=== PATIENT | female | born 1975 | race Caucasian/White ===

== ENCOUNTER 2016-06-15 19:05 | Emergency (ER) | payer OTHER ==
[~2016-06-15] VITALS: Ht 172.7 cm; Wt 77.0 kg
[2016-06-15 19:05] VITALS: Ht 172.7 cm; Wt 77.0 kg
[~2016-06-15 19:05] MED LIST: ACET325T33 PO; FIORICET PO; FLUO10TA; IBUP-1542; IBUP-1542 PO; LORA-186 PO; LORA-444 PO
[2016-06-15 21:42] LABS: URINE BLOOD (Dip) POC 3+ (NEGATIVE)
--- NOTE | 2016-06-15 23:12 | RADRPT ---
PROCEDURE: Ultrasound of the pelvis. CLINICAL INDICATION: Vaginal bleeding TECHNIQUE: Transabdominal and transvaginal ultrasound of the pelvis was performed to better evalua te the pelvic viscera. COMPARISON: No pertinent prior examinations were submitted for comparison. FINDINGS: LAST MENSTRUAL PERIOD: Unavailable UTERUS: Size: 7.8 x 4.1 x 4.9 cm. The uterine texture is homogeneous. The endometrium measures 10 mm which i s within normal limits. RIGHT OVARY: Size: 2.4 x 1.6 x 2.1 cm. No ovarian lesion or cyst is identified.Normal Doppler flow is noted to th e right ovary. LEFT OVARY: The ovary is not visualized. No adnexal masses are seen. CUL-DE-SAC: There is no abnormal free fluid. IMPRESSION: Normal endometrium. No evidence of ovarian torsion. RPTAT: HIKT .Antwan Adams MD, Date Time Electronically viewed and signed by .Antwan Adams MD, on 06/15/2016 23:12 .T/
[2016-06-15] MEDS ORDERED: IBUP800T25 PO (23:26)
--- NOTE | 2016-06-16 03:01 | ERD ---
ER Documentation Chief Complaint Date/Time DATE: 06/16/16 TIME: 02:56 Chief Complaint heavy vag bleed since last nite, consumes 1 pad/hr,denies preg HPI 40-year-old female complaining of heavy vaginal bleeding since last night. She changes pad every 2 hours. She also noticed large clots. She has pelvic pain. Her previous menstrual period started on 05/18/2016. Patient stated that she used to have heavy menstrual flow on the first day of her period, but this time flow is heavier than usual. Her PCP have given her ibuprofen. Denies fever or chills. Denies dysuria. Denies history of fibroids. ROS All systems reviewed and are negative except as per history of present illness. Medications Home Meds Active Scripts Ibuprofen* (Motrin*) 800 Mg Tab, 800 MG PO Q8, #30 TAB Take 1 every 8 hours for the first 3 days of the menstrual period. Prov:DENINS MONZON FINGERNAIL TECHNICIAN 06/15/16 Loratadine* (Claritin*) 10 Mg Tablet, 10 MG PO DAILY, #30 TAB Prov:LINDSAY HEREDIA PA-C 03/28/16 Ibuprofen* (Motrin*) 600 Mg Tab, 600 MG PO Q6H Y for PAIN AND OR ELEVATED TEMP, #30 TAB Prov:LINDSAY HEREDIA PA-C 03/28/16 Acetaminophen* (Tylenol*) 325 Mg Tablet, 2 TAB PO Q6 Y for PAIN AND OR ELEVATED TEMP, #20 TAB Prov:LINDSAY HEREDIA PA-C 03/28/16 Acetamin/Butalbital/Caffeine* (Fioricet*) 1 Tab Tab, 1 TAB PO Q4H Y for PAIN LEVEL 1-5, #30 TAB Prov:ERENDIRA HENLEY PA-C 11/29/15 Reported Medications Lorazepam* (Ativan*) 2 Mg Tablet, 2 MG PO DAILY 02/04/13 Fluoxetine Hcl* (Prozac*) 10 Mg Tablet 10/22/10 Ibuprofen* (Ibuprofen*) 600 Mg Tablet 10/22/10 Allergies Allergies: Coded Allergies: No Known Drug Allergies (Verified Allergy, Mild, 02/04/13) PMhx/Soc History of Surgery: No (CSECTION; BREAST AUGMENTATION, LAP CHOLEY 2010) Anesthesia Reaction: No Hx Neurological Disorder: No Hx Respiratory Disorders: No Hx Cardiac Disorders: No Hx Psychiatric Problems: Yes (DEPRESSION ON MED) Hx Miscellaneous Medical Probl: No Hx Alcohol Use: Yes (OCCASIONALLY) Hx Substance Use: No Hx Tobacco Use: Yes (2 CIGARETTES PER WEEKEND) Smoking Status: Never smoker Physical Exam Vitals Vital Signs Date Time Temp Pulse Resp B/P Pulse Ox O2 Delivery O2 Flow Rate FiO2 06/15/16 19:05 98.8 65 18 132/70 98 Physical Exam General impression: Well-developed, well-nourished. Alert, oriented, in no acute distress Head: Normocephalic, atraumatic. Respiration: Normal respiratory effort. Lungs clear to auscultate bilaterally. No wheezes, rales or rhonchi. Cardiovascular: Regular rate and rhythm. No murmurs or extra heart sounds. Abdomen: Abdomen normal to inspection. Suprapubic tenderness. No masses or organomegaly. Bowel sounds normal. Back: Normal to inspection. No midline spine tenderness. No CVA tenderness. Neuro: Mental status normal, speech normal. Skin: Normal turgor. No rash or lesions. Psych: Normal mood and affect. Results 24 hrs Laboratory Tests Test 06/15/16 21:44 Bedside Urine Blood 3+ Bedside Urine Glucose (UA) Negative Bedside Urine Ketones (LAB) Negative Bedside Urine Leukocyte Esterase (L Negative Bedside Urine Nitrite (LAB) Negative Bedside Urine Protein (LAB) 2+ Bedside Urine pH (LAB) 7.5 Procedures/MDM Well-appearing 40-year-old female presents to ED with heavy menstrual flow 2 days. Urine was negative. Urine dip showed 2+ blood, otherwise negative. Pelvic ultrasound was obtained, which was also normal. No sign of ovarian cyst or uterine fibroids. I have low suspicion for ectopic . Low suspicion for ovarian torsion. I explained to the patient that it is not unusual to have heavy menstrual flow at her age. She should continue to take ibuprofen every 6-8 hours during the first few days of her menstrual cycle. Patient also advised to follow-up with her casing builder. Patient appears well, stable for discharge and outpatient management. Medical decision making shared with patient and family. Education provided to patient and family. Patient and family expressed understanding of the plan. Medications on discharge: Ibuprofen. Follow-up: Primary care provider in 2-3 days or return to ED if worse. Departure Diagnosis: Primary Impression: Excessive vaginal bleeding Condition: Stable Patient Instructions: Dysfunctional Uterine Bleeding Referrals: ANDREW ROWELL (PCP) Additional Instructions: Call your primary care doctor TOMORROW for an appointment during the next 2-3 days.See the doctor sooner or return here if your condition worsens before your appointment time. DENNSI MONZON NP Jun 16, 2016 03:01
== END 2016-06-15 23:38 | disposition home or self-care (01) ==
LOC: FTE 19:05
DX: N93.9 Abnormal uterine and vaginal bleeding, unspecified (principal); R10.2 Pelvic and perineal pain; F17.210 Nicotine dependence, cigarettes, uncomplicated
CPT/HCPCS: 76830; 76856; 81003; Z7502

== ENCOUNTER 2016-11-12 11:39 | Emergency (ER) | payer OTHER ==
[~2016-11-12] VITALS: Wt 74.5 kg
[~2016-11-12 11:39] MED LIST changes: +IBUP800T25 PO
[2016-11-12] MEDS ORDERED: TETRACAINE 0.5% 4 ML OPH BOTH EYES ONE (12:30)
--- NOTE | 2016-11-12 13:11 | RADRPT ---
PROCEDURE: CT Brain without contrast. CLINICAL INDICATION: Headache TECHNIQUE: CT scan of the brain was performed on a multidetector high-resolution CT scan. Axial im aging was obtained of the brain without contrast administration. Coronal and sagittal reformatted i mages were obtained from the axial source images. Standard CT scan of the head without contrast prot ocols were performed. The total exam CTDI equals the 44.33 mGy and the total exam DLP equals 720.23 mGy-cm. One or more of the following dose reduction techniques were used: - Automated exposure control. - Adjustment of the mA and/or kV according to patient size. Use of iterative reconstruction technique. COMPARISON: CT head without contrast 11/29/2015. FINDINGS: The ventricular system is normal in size without midline shift. There is symmetrical prominence of the frontal extra-axial CSF spaces consistent with mild bifrontal volume loss. Negative for intracr anial masses or hemorrhages. The whitt-white matter junction is unremarkable. The bones and calvari um are intact. The paranasal sinuses and mastoids are unremarkable. IMPRESSION: 1. No evidence intracranial masses hemorrhages midline shift. 2. Mild bifrontal volume loss. RPTAT:AAJJ Physician Sharifa Date Time Electronically viewed and signed by Physician Sharifa on 11/12/2016 13:10 BM/
[2016-11-12] MEDS ORDERED: TRAM50TA2 PO (13:21)
--- NOTE | 2016-11-12 13:52 | ERD ---
ER Documentation Chief Complaint Date/Time DATE: 11/12/16 TIME: 13:48 Chief Complaint PAIN ON LEFT SIDE OF HEAD, ONSET 2 DAYS HPI 40-year-old female complains of left-sided headache for the past 8 days. She states is gradual onset, achy, feeling like a spasm type of pain and it goes onto the left side of the neck, it has been intermittent, on and off. She states that the same headache presented about a year ago, she was seen in November [address] scan of head that was unremarkable. She has tried taking over -the-counter Excedrin, with only mild relief. She states that there is pressure -like pain behind the left side of her eye, and is requesting that we check her pressures. She is wearing the same prescription glasses without any visual changes or visual focal deficits. No associated trauma, dizziness, nausea, vomiting. ROS All systems reviewed and are negative except as per history of present illness. Medications Home Meds Active Scripts Tramadol HCl (Tramadol HCl) 50 Mg Tablet, 50 MG PO Q4 Y for PAIN, #20 TAB Prov:CRISTIAN CONCEPCION PA-C 11/12/16 Ibuprofen* (Motrin*) 800 Mg Tab, 800 MG PO Q8, #30 TAB Take 1 every 8 hours for the first 3 days of the menstrual period. Prov:DENNIS MONZON NP 06/15/16 Loratadine* (Claritin*) 10 Mg Tablet, 10 MG PO DAILY, #30 TAB Prov:LINDSAY HEREDIA PA-C 03/28/16 Ibuprofen* (Motrin*) 600 Mg Tab, 600 MG PO Q6H Y for PAIN AND OR ELEVATED TEMP, #30 TAB Prov:LINDSAY HEREDIA PA-C 03/28/16 Acetaminophen* (Tylenol*) 325 Mg Tablet, 2 TAB PO Q6 Y for PAIN AND OR ELEVATED TEMP, #20 TAB Prov:LINDSAY HEREDIA PA-C 03/28/16 Acetamin/Butalbital/Caffeine* (Fioricet*) 1 Tab Tab, 1 TAB PO Q4H Y for PAIN LEVEL 1-5, #30 TAB Prov:ERENDIRA HENLEY PA-C 11/29/15 Reported Medications Lorazepam* (Ativan*) 2 Mg Tablet, 2 MG PO DAILY 02/04/13 Fluoxetine Hcl* (Prozac*) 10 Mg Tablet 10/22/10 Ibuprofen* (Ibuprofen*) 600 Mg Tablet 10/22/10 Allergies Allergies: Coded Allergies: No Known Drug Allergies (Verified Allergy, Mild, 02/04/13) PMhx/Soc History of Surgery: No (CSECTION; BREAST AUGMENTATION, LAP CHOLEY 2010) Anesthesia Reaction: No Hx Neurological Disorder: No Hx Respiratory Disorders: No Hx Cardiac Disorders: No Hx Psychiatric Problems: Yes (DEPRESSION ON MED) Hx Miscellaneous Medical Probl: No Hx Alcohol Use: Yes (OCCASIONALLY) Hx Substance Use: No Hx Tobacco Use: Yes (2 CIGARETTES PER WEEKEND) Smoking Status: Current every day smoker Physical Exam Vitals Vital Signs Date Time Temp Pulse Resp B/P Pulse Ox O2 Delivery O2 Flow Rate FiO2 11/12/16 11:43 99.1 75 17 124/69 98 Physical Exam General: Anxious, well-appearing, in no distress. HEENT: Head is normocephalic, atraumatic. No scleral icterus. Pupils are equal , round, and reactive. Extraocular movements intact. Pressures are likely falsely elevated 32 and 34 and bilateral eyes. Neck: Supple. Nontender. Lungs: Clear to auscultation. Normal air movement. Heart: Regular rate and rhythm. S1 and S2 are normal. No murmurs, gallops, or rubs. Abdomen: Soft, nontender, nondistended. Bowel sounds are normoactive. Extremities: No clubbing or cyanosis. Normal pulses. Moving extremities x 4. No weakness. Neurologic: Alert and oriented 3. No focal deficits. Cranial nerves II 12 grossly intact, speech and gait normal. Strength upper and lower 70s 5 out of 5 bilaterally. Skin: Normal turgor. No rash or lesions. Results 24 hrs Current Medications Medications (Trade) Dose Ordered Sig/Bunny Route PRN Reason Start Time Stop Time Status Last Admin Dose Admin Tetracaine HCl (Tetracaine 0.5% Steri-Unit Claudia) 1 drop ONCE ONCE BOTH EYES 11/12/16 12:30 11/12/16 12:31 DC Radiology Main Line: [phone] DIAGNOSTIC IMAGING REPORT Patient: CHIQUIS ACHARYA : 1975 Age: 40 Sex: F MR #: [id number] DOS: 11/12/16 1209 Ordering MD: CRISTIAN CONCEPCION PA-C Location: [facility] Room/Bed: PROCEDURE: CT Brain without contrast. CLINICAL INDICATION: Headache TECHNIQUE: CT scan of the brain was performed on a multidetector high- resolution CT scan. Axial imaging was obtained of the brain without contrast administration. Coronal and sagittal reformatted images were obtained from the axial source images. Standard CT scan of the head without contrast protocols were performed. The total exam CTDI equals the 44.33 mGy and the total exam DLP equals 720.23 mGy-cm. One or more of the following dose reduction techniques were used: - Automated exposure control. - Adjustment of the mA and/or kV according to patient size. Use of iterative reconstruction technique. COMPARISON: CT head without contrast 11/29/2015. FINDINGS: The ventricular system is normal in size without midline shift. There is symmetrical prominence of the frontal extra-axial CSF spaces consistent with mild bifrontal volume loss. Negative for intracranial masses or hemorrhages. The whitt-white matter junction is unremarkable. The bones and calvarium are intact. The paranasal sinuses and mastoids are unremarkable. IMPRESSION: 1. No evidence intracranial masses hemorrhages midline shift. 2. Mild bifrontal volume loss. RPTAT:AAJJ Physician Sharifa Date Time Electronically viewed and signed by Physician Sharifa on 11/12/2016 13:10 BM/ CC: CRISTIAN CONCEPCION PA-C Procedures/MDM ED course: I did review patient's electronic medical reviewed view, CT scan of the head did not show any acute intracranial findings. This was discussed with the patient, she has the same headache from a year ago and given the radiation risks I do not recommend a CT scan of the head at this time. She states that she is very anxious and nervous of a "tumor" and is requesting to repeat the scan at this time. She is aware of the radiation risks, advanced imaging was ordered due to patient's request at this time. Medical decision making: This is a 40-year-old female comes in with left temporal headache that was denied, it has been intermittent for approximately a week and there is sort of tension-like pain that she feels on the left side of her head and neck. There are no concerning signs or symptoms of the subarachnoid hemorrhage, TIA, meningitis, encephalitis, acute coronary syndrome , dissection, temporal arteritis, subdural, skull fracture, and among others are part of my differential diagnosis. She presents with same headache from a year ago, and we rescan her today and it was unremarkable. This is likely a tension headache, she does admit to being anxious and I have reassured the patient that this headache is likely tension, and that she may try something else for her pain given the Excedrin was not working. She will be given a short course of tramadol for pain was asked to recheck with her primary care doctor. Departure Diagnosis: Primary Impression: Headache Condition: Good Patient Instructions: Self-Care for Headaches Referrals: [facility] Hours: Mon - Fri 9:00 AM - 5:00 PM Additional Instructions: Call your primary care doctor TOMORROW for an appointment during the next 1-2 days.See the doctor sooner or return here if your condition worsens before your appointment time. CRISTIAN CONCEPCION PA-C Nov 12, 2016 13:52
== END 2016-11-12 14:11 | disposition home or self-care (01) ==
LOC: FTE 11:39
DX: R51 Headache (principal); F17.210 Nicotine dependence, cigarettes, uncomplicated
CPT/HCPCS: 70450; Z7610

== ENCOUNTER 2017-04-21 11:13 | Emergency (ER) | payer OTHER ==
[~2017-04-21] VITALS: Wt 76.7 kg
[~2017-04-21 11:13] MED LIST changes: +TRAM50TA2 PO
== END 2017-04-21 14:52 | disposition left against medical advice (07) ==
LOC: FTE 11:13
DX: Z53.21 Procedure and treatment not carried out due to patient leaving prior to being seen by health care provider (principal)

== ENCOUNTER 2017-04-29 21:50 | Emergency (ER) | payer OTHER ==
[~2017-04-29] VITALS: Ht 172.7 cm; Wt 89.0 kg
[2017-04-30 00:18] VITALS: Ht 172.7 cm; Wt 89.0 kg
--- NOTE | 2017-04-30 01:23 | ERD ---
ER Documentation Chief Complaint Chief Complaint BIB SELF, LEFT SIDED FACIAL PARALYSIS, PAIN IN FACE HPI 41-year-old female presents here to emergency department for complaints of left facial numbness tingling facial droop has been going on for the last 2 weeks now. Patient was diagnosed of Coe's palsy, patient was seen by ophthalmology specialist, was sent here in the emergency department to rule out optic neuritis. At this time, patient did not have any vision changes, patient does not complain of any eye pain. Patient had a head injury 2 weeks ago had a fall in is worried that her symptoms may be related to this. Patient denies any nausea or vomiting. Patient denies any vision changes at this time. Patient denies any blurry vision. Patient is unable to completely close the left eye causing her some dryness of the left eye and burning pain at times. Patient denies any eye pain at this time. Patient denies any eye redness. ROS All systems reviewed and are negative except as per history of present illness. Medications Home Meds Active Scripts Tramadol HCl (Tramadol HCl) 50 Mg Tablet, 50 MG PO Q4 Y for PAIN, #20 TAB Prov:CRISTIAN CONCEPCION PA-C 11/12/16 Ibuprofen* (Motrin*) 800 Mg Tab, 800 MG PO Q8, #30 TAB Take 1 every 8 hours for the first 3 days of the menstrual period. Prov:DENNIS MONZON NP 06/15/16 Loratadine* (Claritin*) 10 Mg Tablet, 10 MG PO DAILY, #30 TAB Prov:LINDSAY HEREDIA PA-C 03/28/16 Ibuprofen* (Motrin*) 600 Mg Tab, 600 MG PO Q6H Y for PAIN AND OR ELEVATED TEMP, #30 TAB Prov:LINDSAY HEREDIA PA-C 03/28/16 Acetaminophen* (Tylenol*) 325 Mg Tablet, 2 TAB PO Q6 Y for PAIN AND OR ELEVATED TEMP, #20 TAB Prov:LINDSAY HEREDIA PA-C 03/28/16 Acetamin/Butalbital/Caffeine* (Fioricet*) 1 Tab Tab, 1 TAB PO Q4H Y for PAIN LEVEL 1-5, #30 TAB Prov:ERENDIRA HENLEY PA-C 11/29/15 Reported Medications Lorazepam* (Ativan*) 2 Mg Tablet, 2 MG PO DAILY 02/04/13 Fluoxetine Hcl* (Prozac*) 10 Mg Tablet 10/22/10 Ibuprofen* (Ibuprofen*) 600 Mg Tablet 10/22/10 Allergies Allergies: Coded Allergies: No Known Drug Allergies (Verified Allergy, Mild, 04/30/17) PMhx/Soc Medical and Surgical Hx: pt denies Medical Hx History of Surgery: No (CSECTION; BREAST AUGMENTATION, LAP CHOLEY 2010) Anesthesia Reaction: No Hx Neurological Disorder: No Hx Respiratory Disorders: No Hx Cardiac Disorders: No Hx Psychiatric Problems: Yes (DEPRESSION ON MED) Hx Miscellaneous Medical Probl: No Hx Alcohol Use: Yes (OCCASIONALLY) Hx Substance Use: No Hx Tobacco Use: Yes (2 CIGARETTES PER WEEKEND) Smoking Status: Current some day smoker FmHx Family History: No coronary disease, No diabetes, No other Physical Exam Vitals Vital Signs Date Time Temp Pulse Resp B/P Pulse Ox O2 Delivery O2 Flow Rate FiO2 04/30/17 00:18 98.5 82 18 126/60 100 Physical Exam GENERAL: The patient is well developed and appropriate for usual state of health, in no apparent distress. HEENT: Atraumatic. Bilateral eyes are PERRLA EOM intact. Unable to completely closed left eyelids because of the Coe's palsy. Noted redness of the left eye. No redness noted in the left eye.: Normal tympanic membrane, no erythema or bulging. No ear canal swelling. No ear discharge. Nose: normal nasal turbinates, no erythema or swelling. Normal nasal discharge. Throat: oropharynx clear. No tonsillar swelling or tonsillar exudates. No lymphadenopathy. CHEST: Clear to auscultation bilaterally. There are no rales, wheezes or rhonchi. HEART: Regular rate and rhythm. No murmurs, clicks, rubs or gallops. No S3 or S4. ABDOMEN: Soft, nontender and nondistended. Good bowel sounds. No rebound or guarding. No gross peritonitis. No gross organomegaly or masses. No Woo sign or McBurney point tenderness. BACK: No midline or flank tenderness. EXTREMITIES: Equal pulses bilaterally. There is no peripheral clubbing, cyanosis or edema. No focal swelling or erythema. Full range of motion. Grossly neurovascularly intact. NEURO: Alert and oriented. Cranial nerves 2-12 intact. Motor strength in all 4 extremities with 5/5 strength. Sensation grossly intact. Normal speech and gait. Noted facial nerve palsy. No forehead sparing noted. SKIN: There is no apparent rash or petechia. The skin is warm and dry. HEMATOLOGIC AND LYMPHATIC: There is no evidence of excessive bruising or lymphedema. No gross cervical, axillary, or inguinal lymphadenopathy. Results 24 hrs Visual acuity was checked and was normal for patient. PROCEDURE: Noncontrast CT Head. CLINICAL INDICATION: Pain. TECHNIQUE: Noncontrast CT of the head was obtained. The administered radiation dose was CTDI vol = 45 mGy, DLP = 810 mGy-cm. One or more of the following dose reduction techniques were used: automated exposure control, adjustment of the mA and/or kV according to patient size and/or use of iterative reconstruction technique. DICOM images are available. COMPARISON: 11/12/2016 FINDINGS: The ventricles and sulci are within normal limits. There is no acute intracranial hemorrhage or extra-axial fluid collection. There is no mass effect. No midline shift is identified. There is no loss of whitt-white differentiation to suggest acute infarction. The orbits are within normal limits. Some mucosal thickening and likely inspissated secretions are noted within the right maxillary sinus. No destructive osseous lesion is identified. IMPRESSION: No acute findings. RPTAT: HIKT .Antwan Adams MD, MD Date Time Electronically viewed and signed by .Antwan Adams MD, MD on 04/30/2017 02:16 .T/ CC: KATEY PAGAN REINFORCING IRON WORKER HELPER Procedures/MDM Medical Decision Making: Patient symptoms most likely is consistent with a head concussion. Patient also has a left facial nerve palsy, Coe's palsy. No suspicion for any optic neuritis, patient does not have any eye pain, patient did not have any vision loss, vision is normal. I discussed this case with my attending physician, Dr. Bailey which agrees with plan with outpatient management to follow-up with ophthalmology and urology specialist for further evaluation of symptoms. There is low suspicion for neurological emergencies at this time since patients neurologic exam is normal. Patient did not have any altered level consciousness, vomiting, changes in balance or memory after incident. Patients CT scan of the head does not show any neurological emergencies at this time. Prescription was given for acyclovir, prednisone, is advised to follow-up with primary care doctor in 2 days for reevaluation of symptoms. Patient was advised to cover her left eye. Patient was advised to return to emergency department for any worsening symptoms Dispostion: Home. Stable Disclaimer: Inadvertent spelling and grammatical errors are likely due to EHR/ dictation software use and do not reflect on the overall quality of patient care. Also, please note that the electronic time recorded on this note does not necessarily reflect the actual time of the patient encounter. Departure Diagnosis: Primary Impression: Concussion Encounter type: initial encounter Loss of consciousness presence/duration: without LOC Qualified Code: S06.0X0A - Concussion without loss of consciousness, initial encounter Additional Impression: Coe's palsy Condition: Stable Patient Instructions: Coe's Palsy, Concussion KATEY PAGAN NP Apr 30, 2017 01:23
--- NOTE | 2017-04-30 02:17 | RADRPT ---
PROCEDURE: Noncontrast CT Head. CLINICAL INDICATION: Pain. TECHNIQUE: Noncontrast CT of the head was obtained. The administered radiation dose was CTDI vol = 45 mGy, DLP = 810 mGy-cm. One or more of the following dose reduction techniques were used: automate d exposure control, adjustment of the mA and/or kV according to patient size and/or use of iterative reconstruction technique. DICOM images are available. COMPARISON: 11/12/2016 FINDINGS: The ventricles and sulci are within normal limits. There is no acute intracranial hemorrhage or ext ra-axial fluid collection. There is no mass effect. No midline shift is identified. There is no loss of whitt-white differentiation to suggest acute infarction. The orbits are within normal limits. Some mucosal thickening and likely inspissated secretions are n oted within the right maxillary sinus. No destructive osseous lesion is identified. IMPRESSION: No acute findings. RPTAT: HIKT .Antwan Adams MD, MD Date Time Electronically viewed and signed by .Antwan Adams MD, on 04/30/2017 02:16 .T/
[2017-04-30] MEDS ORDERED: PRED50TA PO (02:25)
[2017-04-30] MEDS ORDERED: ACYC800T57 PO (02:25)
== END 2017-04-30 02:31 | disposition home or self-care (01) ==
LOC: FTE 21:50
DX: S06.0X0A Concussion without loss of consciousness, initial encounter (principal); G51.0 Bell's palsy; F17.210 Nicotine dependence, cigarettes, uncomplicated; W18.39XA Other fall on same level, initial encounter; Y92.9 Unspecified place or not applicable
CPT/HCPCS: 70450; Z7502

== ENCOUNTER 2017-06-24 05:42 | Day surgery (SDC) | END 2017-06-24 09:42 | disposition home or self-care (01) ==

== ENCOUNTER 2017-10-13 23:01 | Emergency (ER) | END 2017-10-14 02:24 | disposition home or self-care (01) ==

== ENCOUNTER 2017-11-18 19:24 | Emergency (ER) | END 2017-11-18 23:00 | disposition home or self-care (01) ==

== ENCOUNTER 2018-03-05 00:48 | Emergency (ER) | END 2018-03-05 03:40 | disposition home or self-care (01) ==

== ENCOUNTER 2018-03-05 18:42 | Emergency (ER) | END 2018-03-05 22:03 | disposition home or self-care (01) ==

== ENCOUNTER 2018-04-08 19:30 | Emergency (ER) | END 2018-04-08 23:15 | disposition home or self-care (01) ==

== ENCOUNTER 2018-08-26 20:05 | Outpatient (CLI) | payer OTHER ==
[~2018-08-26 20:05] MED LIST changes: -ACET325T33 PO; +ACET500C5 PO; +CEPH-443 PO; -FIORICET PO; +HYDR-4011 PO; -IBUP-1542; -IBUP-1542 PO; -IBUP800T25 PO; -LORA-186 PO; -LORA-444 PO; +POLY10DR19 RIGHT EYE; -TRAM50TA2 PO
[2018-08-26] MEDS ORDERED: ACETAMINOPHEN 500 MG TAB PO STA (21:35)
--- NOTE | 2018-08-26 22:10 | PN ---
Triage Information Date/Time Reason for visit: DFM Weeks of Gestation This is 42-year-old 2 para 1 at 34 weeks and 3 days of gestation with estimated date of delivery October 042018 Patient presents with chief complaint of decreased movement and leaking fluid She denies any vaginal bleeding or uterine contractions She complains of abdominal pain mostly in one area where is the baby's head- baby's in breech presentation Patient was complicated with subchorionic hemorrhage in the first trimester with vaginal bleeding which stopped Her past obstetrical history significant for x1 for breech presentation /Para 2 para 1 Diabetes: none Hypertention: none Objective Heart Rate: 140's Heart Rate Comments heart rate tracing category 1 Contractions: None Results/Medications Results 24 hrs Laboratory Tests Test 08/26/18 20:35 08/26/18 20:50 Membranes Rupture NEGATIVE Urine Color YELLOW Urine Clarity SLIGHTLY CLOUDY A Urine pH 7.0 Urine Specific [place] 1.009 Urine Ketones NEGATIVE Urine Nitrite NEGATIVE Urine Bilirubin NEGATIVE Urine Urobilinogen NEGATIVE Urine Leukocyte Esterase TRACE A Urine Microscopic RBC 1 Urine Microscopic WBC 15 H Urine Squamous Epithelial Cells FEW Urine Bacteria MANY A Urine Yeast (Budding) FEW A Urine Hemoglobin 1+ H Urine Glucose NEGATIVE Urine Total Protein NEGATIVE Imaging Results PROCEDURE: Obstetrical ultrasound for biophysical profile CLINICAL INDICATION: Biophysical profile. . TECHNIQUE: Obstetrical ultrasound of the uterus for biophysical profile. Transabdominal and transvaginal views are obtained. COMPARISON: 05/07/2018 FINDINGS: Single intrauterine gestation. Presentation: Breech Placenta: Anterior. No evidence of placental abruption. No evidence of placenta previa. Cervix is closed as visualized transvaginally measuring 3.8 cm. breathing movement = 2/2 tone = 2/2 motion = 2/2 [place] = 2/2 [place] = 11.4 cm heart rate: 144 beats per minute IMPRESSION: Single intrauterine gestation. Biophysical profile 12/24 Breech presentation. RPTAT: AADD .Phill Bobo MD, Date Time Electronically viewed and signed by .Phill Bobo MD, on 08/26/2018 21:46 .B/ CC: LISA GORDON MD [phone] Disposition: Discharge Assessment/Plan Urine culture was sent Patient was instructed to increase p.o. hydration Tylenol was given for pain kick count instructions were given Patient was instructed to follow-up with her own SHACTOR in 1-2 days AMAYA CARRION MD Aug 26, 2018 22:10
== END 2018-08-26 22:40 | disposition home or self-care (01) ==
LOC: OBT 20:05 → L-D 20:06 → OBT 22:40
PROVIDERS: ATTEND Obstetrics & Gynecology
DX: O36.8130 Decreased fetal movements, third trimester, not applicable or unspecified (principal); O42.913 Preterm premature rupture of membranes, unspecified as to length of time between rupture and onset of labor, third trimester; O32.1XX0 Maternal care for breech presentation, not applicable or unspecified; O09.523 Supervision of elderly multigravida, third trimester; Z3A.34 34 weeks gestation of pregnancy
CPT/HCPCS: 76817; 76818; 81001; 84112; 87086; Z7500; Z7610; G0463

== ENCOUNTER 2018-08-28 19:55 | Outpatient (CLI) | payer OTHER ==
[~2018-08-28] VITALS: Ht 172.7 cm; Wt 82.4 kg
[2018-08-28 20:16] VITALS: BP 111/60; PULSE 83; RESP 18
[2018-08-28] MEDS ORDERED: FOLI0.4T2 PO (20:32)
[2018-08-28] MEDS ORDERED: PREN-19 PO (20:32)
[2018-08-28] MEDS ORDERED: FERR134T PO (20:32)
--- NOTE | 2018-08-28 21:48 | PN ---
Triage Information Date/Time Reason for visit: Patient is here for NST and BPP Weeks of Gestation Patient is a 42-year-old 2 para 1 at 34 weeks and 5 days of gestation with estimated date of delivery October 04, 2018 Patient is here for NST and BPP for advanced maternal age She reports positive movement, denies any contractions, denies any vaginal bleeding or leaking fluid /Para 2 para 1 Diabetes: none Hypertention: none Additional information Advanced maternal age Objective Vital Signs Date Temp Pulse Resp B/P (MAP) Pulse Ox O2 O2 Flow FiO2 Time Delivery Rate 08/28/18 97.8 83 18 111/60 Room Air 20:16 (77) Heart Rate: 140's Heart Rate Comments heart rate tracing category 1 Contractions: None Results/Medications Results 24 hrs Laboratory Tests Test 08/28/18 21:20 Urine Color YELLOW Urine Clarity SLIGHTLY CLOUDY A Urine pH 6.0 Urine Specific [place] 1.025 Urine Ketones TRACE A Urine Nitrite NEGATIVE Urine Bilirubin NEGATIVE Urine Urobilinogen NEGATIVE Urine Leukocyte Esterase TRACE A Urine Microscopic RBC 3 Urine Microscopic WBC 7 H Urine Squamous Epithelial Cells FEW Urine Bacteria FEW A Urine Mucus FEW A Urine Hemoglobin NEGATIVE Urine Glucose NEGATIVE Urine Total Protein NEGATIVE Imaging Results PROCEDURE: US biophysical profile. CLINICAL INDICATION: labor. well-being. TECHNIQUE: Multiple sonographic images of the uterus were obtained. The images were reviewed on a PACS workstation. COMPARISON: US PELVIS 08/26/2018 FINDINGS: There is a single live intrauterine gestation. heart rate is 144 beats per minute. The position is breech. The placenta is anterior, grade 1. The [place] is 9.8 cm. Breathing Movement: 2 Gross Body Movement: 2 Tone: 2 Qualitative Amniotic Fluid Volume: 2 TOTAL: 8 IMPRESSION: 1. Single viable intrauterine gestation. 2. Biophysical profile = 12/24. 3. [place] = 9.8 cm. 4. The presentation is breech. RPTAT: HFN .Sean Kna MD, MD Date Time Electronically viewed and signed by .Sean Kan MD, MD on 08/28/2018 20:52 .N/ CC: DE CARRANZA MD [phone] Disposition: Discharge Assessment/Plan kick count instructions were given Labor precautions were given Patient counseled to increase fluid intake Patient instructed to follow-up with her own [facility] in 1-2 days AMAYA CARRION MD Aug 28, 2018 21:48
--- NOTE | 2018-08-29 01:05 | TRIAGE ---
OB Triage Datetime Report Generated by CPN: 08/29/2018 01:05 Datetime: 08/28/2018 21:40 Stage of : OB Triage Heart Rate FHR Baseline Rate: 130 Monitor Mode: External US FHR Baseline Changes: No Baseline Change Variability: Moderate 6-25 bpm Accelerations: 15X15 Decelerations: None Category: Category I Datetime: 08/28/2018 20:49 Stage of : OB Triage Labor Evaluation Monitor Mode: External Pattern: Normal: <= 5 Contractions in 10 Minutes Resting Tone [place]: Relaxed Heart Rate FHR Baseline Rate: 135 Monitor Mode: External US FHR Baseline Changes: No Baseline Change Variability: Moderate 6-25 bpm Accelerations: 15X15 Decelerations: None Category: Category I Datetime: 08/28/2018 20:40 Stage of : OB Triage Heart Rate FHR Baseline Rate: 135 Monitor Mode: External US FHR Baseline Changes: No Baseline Change Variability: Moderate 6-25 bpm Accelerations: 15X15 Decelerations: None Category: Category I Pain Assessment Pain Scale: 0 Pain Presence: None/Denies Pain Type: N/A Datetime: 08/28/2018 20:20 Time of Arrival: 08/28/2018 19:45 EGA: 34.5 Arrived By: Ambulatory Arrived From: Home Chief Complaint: pt of AMA presents to OB triage for followup 2 days post visit for DFM. Order s in place for NST/BPP Movement: Present Contractions: Denies/Absent Rupture of Membranes: Denies Vaginal Bleeding: None Vaginal Discharge: Denies Recent Sexual Intercouse: Denies Abdominal Trauma: Not Applicable Patient Complaints: None Initial Plan: NST/BPP Datetime: 08/28/2018 19:58 Stage of : OB Triage Maternal Assessment Level of Consciousness: Fully Conscious Headache: Denies Blurred Vision: No Nausea/Vomiting: Denies RUQ Epigastric Pain: Denies Facial Edema: None Labor Evaluation Monitor Mode: External Resting Tone [place]: Relaxed Monitor Mode: External US Comments: FHT 160 Pain Assessment Pain Scale: 0 Pain Presence: None/Denies Pain Type: N/A Datetime: 08/26/2018 22:40 Stage of : OB Triage Datetime: 08/26/2018 21:35 Vaginal Exam ROM Test Kit: Negative Datetime: 08/26/2018 21:00 Heart Rate FHR Baseline Rate: 145 FHR Baseline Changes: No Baseline Change Variability: Moderate 6-25 bpm Accelerations: 15X15
== END 2018-08-28 21:48 | disposition home or self-care (01) ==
LOC: OBT 19:55 → L-D 19:56 → OBT 21:48
PROVIDERS: ATTEND Obstetrics & Gynecology
DX: O36.8330 Maternal care for abnormalities of the fetal heart rate or rhythm, third trimester, not applicable or unspecified (principal); O09.523 Supervision of elderly multigravida, third trimester; Z3A.34 34 weeks gestation of pregnancy
CPT/HCPCS: 76818; 81001; Z7500; G0463

== ENCOUNTER 2018-09-18 13:29 | Outpatient (CLI) | payer OTHER ==
[~2018-09-18] VITALS: Ht 172.7 cm; Wt 82.2 kg
[~2018-09-18 13:29] MED LIST changes: -ACET500C5 PO; -CEPH-443 PO; +FERR134T PO; -FLUO10TA; +FOLI0.4T2 PO; -HYDR-4011 PO; -POLY10DR19 RIGHT EYE; +PREN-19 PO
[2018-09-18 13:47] VITALS: Ht 172.7 cm; Wt 82.2 kg
[2018-09-18 13:48] VITALS: BP 114/74; PULSE 72
[2018-09-18] MEDS ORDERED: ACETAMINOPHEN 500 MG TAB PO STA (16:33)
--- NOTE | 2018-09-18 18:05 | TRIAGE ---
OB Triage Datetime Report Generated by CPN: 09/18/2018 18:04 Datetime: 09/18/2018 17:30 Pain Assessment Pain Scale: 0 Pain Presence: None/Denies Pain Type: N/A Pain Assessment Comments: pt denies having headache Datetime: 09/18/2018 17:01 Labor Evaluation Frequency: x1 Monitor Mode: External Duration (sec)2399: 100 Quality: Mild Resting Tone Kim: Relaxed Heart Rate FHR Baseline Rate: 140 Monitor Mode: External US FHR Baseline Changes: No Baseline Change Variability: Moderate 6-25 bpm Accelerations: 15X15 Decelerations: None Category: Category I Datetime: 09/18/2018 16:10 Bedside Blood Glucose: 109 Datetime: 09/18/2018 15:57 Labor Evaluation Frequency: x2 Monitor Mode: External Duration (sec)2399: 40-60 Quality: Mild Resting Tone Kim: Relaxed Heart Rate FHR Baseline Rate: 135 Monitor Mode: External US FHR Baseline Changes: No Baseline Change Variability: Moderate 6-25 bpm Accelerations: 15X15 Decelerations: None Category: Category I Datetime: 09/18/2018 14:59 Labor Evaluation Frequency: none Monitor Mode: External Resting Tone Kim: Relaxed Heart Rate FHR Baseline Rate: 135 Monitor Mode: External US FHR Baseline Changes: No Baseline Change Variability: Moderate 6-25 bpm Accelerations: 15X15 Decelerations: None Category: Category I Datetime: 09/18/2018 13:57 Stage of : OB Triage Assessment Type: Triage Maternal Assessment Level of Consciousness: Fully Conscious DTR's/Clonus: DTRs 2+; No Clonus Headache: Denies Blurred Vision: No Respiratory Effort: Unlabored; Regular Rhythm; Equal Expansion Breath Sounds, Left: Clear and Equal Breath Sounds, Right: Clear and Equal Nausea/Vomiting: Denies RUQ Epigastric Pain: Denies Lower Extremities Edema: None Degree: None Upper Extremities Edema: None Degree: None Facial Edema: None Temperature Route: Oral Fall Risk Assessment History of Falling: (0) No Secondary Diagnosis: (0) No Ambulatory Aid: (0) Bedrest/Nurse Assist IV Therapy: (0) No Gait: (0) Normal/Bedrest/Immobile Mental Status: (0) Oriented to Own Ability Fall Score: 0 Fall Risk Score Definition: No Risk: No action required Labor Evaluation Frequency: none Monitor Mode: External Resting Tone Kim: Relaxed Heart Rate FHR Baseline Rate: 130 Monitor Mode: External US FHR Baseline Changes: No Baseline Change Variability: Moderate 6-25 bpm Accelerations: Prolonged Decelerations: None Category: Category I Pain Assessment Pain Scale: 0 Pain Presence: None/Denies Pain Type: N/A Pain Assessment Comments: pt had back pain yesterday, states she does not have pain today Datetime: 09/18/2018 13:45 Time of Arrival: 09/18/2018 13:24 EGA: 37.5 Arrived By: Ambulatory Arrived From: Home Chief Complaint: c/o back pain from 09/17/18 8:00 pm and weakness this morning Movement: Present Contractions: Denies/Absent Rupture of Membranes: Denies Vaginal Bleeding: None Vaginal Discharge: Denies Recent Sexual Intercouse: Denies Abdominal Trauma: Not Applicable Patient Complaints: Back Pain Time Provider Notified: 09/18/2018 14:29 Provider Notified: Dr. Flores Initial Plan: EFM, NST Datetime: 08/28/2018 20:20 EGA: 34.5
--- NOTE | 2018-09-18 18:08 | PN ---
Triage Information Date/Time 09/18/1808/04/1802 Reason for visit: back pain and generalized weakness Weeks of Gestation 37w5d /Para Diabetes: none Hypertention: none Additional information IVF Objective Vital Signs Date Temp Pulse Resp B/P (MAP) Pulse Ox O2 O2 Flow FiO2 Time Delivery Rate 09/18/18 98.1 72 114/74 13:48 (87) Heart Rate: 140's Heart Rate Comments CAT I tracing Contractions: >10 Minutes Apart Results/Medications Result Diagram: 09/18/18 1448 09/18/18 1448 Results 24 hrs Laboratory Tests Test 09/18/18 14:48 09/18/18 14:50 09/18/18 16:10 White Blood Count 9.9 Red Blood Count 4.29 Hemoglobin 11.9 L Hematocrit 37.1 Mean Corpuscular Volume 86.5 Mean Corpuscular Hemoglobin 27.7 L Mean Corpuscular Hemoglobin Concent 32.1 Red Cell Distribution Width 15.4 H Platelet Count 238 Mean Platelet Volume 10.4 Immature Granulocytes % 0.800 H Neutrophils % 76.4 Lymphocytes % 15.9 Monocytes % 5.5 Eosinophils % 0.9 Basophils % 0.5 Nucleated Red Blood Cells % 0.0 Immature Granulocytes # 0.080 H Neutrophils # 7.6 H Lymphocytes # 1.6 Monocytes # 0.6 Eosinophils # 0.1 Basophils # 0.1 Nucleated Red Blood Cells # 0.0 Sodium Level 138 Potassium Level 4.0 Chloride Level 108 Carbon Dioxide Level 21 Anion Gap 9 Blood Urea Nitrogen 11 Creatinine 0.46 Est Glomerular Filtrat Rate mL/min > 60 Glucose Level 73 Uric Acid 4.1 Calcium Level 10.2 Total Bilirubin 0.2 Direct Bilirubin 0.00 Indirect Bilirubin 0.2 Aspartate Amino Transf (AST/SGOT) 23 Alanine Aminotransferase (ALT/SGPT) 17 Alkaline Phosphatase 142 H Total Protein 7.5 Albumin 3.7 Globulin 3.80 H Albumin/Globulin Ratio 0.97 Urine Color YELLOW Urine Clarity CLEAR Urine pH 7.0 Urine Specific [place] 1.016 Urine Ketones NEGATIVE Urine Nitrite NEGATIVE Urine Bilirubin NEGATIVE Urine Urobilinogen NEGATIVE Urine Leukocyte Esterase NEGATIVE Urine Hemoglobin NEGATIVE Urine Glucose NEGATIVE Urine Total Protein NEGATIVE Bedside Glucose 109 Medications tylenol for headache Imaging Results BPP 12/24 [place] 12.2 Disposition: Discharge Assessment/Plan A IUP 37w5d with previous c/s back pain emotional disturbance P discharge home and f/u at my office DE CARRANZA MD September 18, 2018 18:08
== END 2018-09-18 18:00 | disposition home or self-care (01) ==
LOC: L-D 13:29 → OBT 13:29
PROVIDERS: ATTEND Obstetrics & Gynecology
DX: O26.893 Other specified pregnancy related conditions, third trimester (principal); Z3A.37 37 weeks gestation of pregnancy; M54.9 Dorsalgia, unspecified; R53.1 Weakness
CPT/HCPCS: 76818; 80053; 81003; 82962; 84560; 85025; 87086; Z7500; Z7610; G0463

== ENCOUNTER 2018-09-29 06:05 | Inpatient (IN) | payer OTHER ==
[~2018-09-29] VITALS: Ht 172.7 cm; Wt 82.7 kg
[2018-09-29 06:40] VITALS: BP 116/71; PULSE 77; RESP 18
[2018-09-29 06:42] VITALS: Ht 172.7 cm; Wt 82.7 kg
[2018-09-29] MEDS ORDERED: LACTATED RINGER'S 1,000 ML IV SCH ×2 (06:48→15:00)
--- NOTE | 2018-09-29 06:58 | TRIAGE ---
OB Triage Datetime Report Generated by CPN: 09/29/2018 06:58 Datetime: 09/29/2018 06:39 Stage of : OB Triage Assessment Type: Triage Maternal Assessment Level of Consciousness: Fully Conscious DTR's/Clonus: DTRs 2+; No Clonus Headache: Denies Blurred Vision: No Respiratory Effort: Unlabored; Regular Rhythm; Equal Expansion Breath Sounds, Left: Clear and Equal Breath Sounds, Right: Clear and Equal Nausea/Vomiting: Denies RUQ Epigastric Pain: Denies Lower Extremities Edema: None Degree: None Upper Extremities Edema: None Degree: None Facial Edema: None Temperature Route: Oral Fall Risk Assessment History of Falling: (0) No Secondary Diagnosis: (0) No Ambulatory Aid: (0) Bedrest/Nurse Assist IV Therapy: (0) No Gait: (0) Normal/Bedrest/Immobile Mental Status: (0) Oriented to Own Ability Fall Score: 0 Fall Risk Score Definition: No Risk: No action required Datetime: 09/29/2018 06:38 Vaginal Exam Membrane Status: Intact Datetime: 09/29/2018 06:36 Time of Arrival: 09/29/2018 06:35 EGA: 38.6 Arrived By: Wheelchair Arrived From: Emergency Dept Movement: Present Contractions: Irregular Time Contractions Began: 09/28/2018 21:00 Rupture of Membranes: Denies Vaginal Bleeding: None Vaginal Discharge: Denies Recent Sexual Intercouse: Denies Abdominal Trauma: Not Applicable Patient Complaints: Contractions; Cough Time Provider Notified: 09/29/2018 06:35 Provider Notified: Initial Plan: VS, EFM, SVE Datetime: 09/18/2018 17:48 Labor Evaluation Frequency: x2 Monitor Mode: External Duration (sec)2399: 60-70 Quality: Mild Resting Tone [place]: Relaxed Contraction Comments: pt denies feeling UCs Heart Rate FHR Baseline Rate: 130 Monitor Mode: External US FHR Baseline Changes: No Baseline Change Variability: Moderate 6-25 bpm Accelerations: 15X15 Decelerations: None Category: Category I Datetime: 09/18/2018 13:57 Fall Score: 0 Fall Risk Score Definition: No Risk: No action required Datetime: 09/18/2018 13:45 EGA: 37.2 Datetime: 08/28/2018 20:20 EGA: 34.2
[2018-09-29] MEDS ORDERED: CARBOPROST 250 MCG INJ IM PRN ×2 (07:00→15:00)
[2018-09-29] MEDS ORDERED: CEFAZOLIN 2 GM/50 ML (PMX) 50 ML IVPB SCH (07:00)
[2018-09-29] MEDS ORDERED: MISOPROSTOL 200 MCG TAB PR PRN ×2 (07:00→15:00)
[2018-09-29] MEDS ORDERED: METHYLERGONOVINE 0.2 MG INJ IM PRN ×2 (07:00→15:00)
[2018-09-29] MEDS ORDERED: OXYTOCIN 30 UNITS/LR 500 ML IV PRN ×2 (07:00→15:00)
--- NOTE | 2018-09-29 08:38 | PREAC ---
Date/Time of Note Date/Time of Note DATE: 09/29/18 TIME: 08:37 Anesthesia Eval and Record Evaluation Time Pre-Procedure Interview DATE: 09/29/18 TIME: 08:37 Age 42 Sex female NPO: 8 hrs Preoperative diagnosis repeat c section in apin Planned procedure c section Past Medical History Past Medical History: None Surgery & Anesthesia Issues No known issue Meds Anticoagulation: No Beta Evelyn within 24 hr: No Reason Beta Evelyn not given: Pt. not on B-Evelyn Reported Medications Folic Acid* (Folic Acid*) 0.4 Mg Tablet, 0.4 MG PO DAILY, TAB 08/28/18 Vit #76/Iron,Carb/FA (Prenatabs Rx Tablet) 1 Each Tablet, 1 EACH PO LUIS LY, TAB 08/28/18 Ferrous Sulfate (Iron) 134 Mg Tablet, 134 MG PO DAILY, TAB 08/28/18 Current Medications Lactated Ringer's 1,000 ml @ 125 mls/hr Q8H IV Last administered on 09/29/18at 07:27; Admin Dose 125 MLS/HR; Start 09/29/18 at 06:48 Cefazolin Sodium/ Dextrose 50 ml @ 100 mls/hr ONCE IVPB ; Start 09/29/18 at 07:00 Oxytocin/Lactated Ringer's 500 ml @ 125 mls/hr POST IV ; Start 09/29/18 at 07:00 Oxytocin/Lactated Ringer's 500 ml @ 0 mls/hr ONCE PRN IV .VAGINAL BLEEDING; Start 09/29/18 at 07:00 Methylergonovine Maleate (Methergine) 0.2 mg ONCE PRN IM .VAGINAL BLEEDING; Start 09/29/18 at 07:00 Carboprost Tromethamine (Hemabate) 250 mcg ONCE PRN IM .VAGINAL BLEEDING; Start 09/29/18 at 07:00 Misoprostol (Cytotec) 1,000 mcg ONCE PRN MS .VAGINAL BLEEDING; Start 09/29/18 at 07:00 Meds reviewed: Yes Allergies Coded Allergies: No Known Drug Allergies (Verified Allergy, Mild, 08/28/18) Allergies Reviewed: Yes Labs/Studies Labs Reviewed: Reviewed by anesthesiologist Result Diagram: 09/29/18 0655 Laboratory Tests 09/29/18 06:55 Blood Bank Test 09/29/18 06:55 Antibody Screen NEGATIVE Blood Type B POSITIVE Rh Immune Globulin Candidate NO test: Positive Studies: ECG (n/a), CXR (n/a) Pre-procedure Exam Last vitals Vital Signs Date Temp Pulse Resp B/P (MAP) Pulse Ox O2 O2 Flow FiO2 Time Delivery Rate 09/29/18 98.2 77 18 116/71 97 Room Air 06:40 (86) Airway: Adequate mouth opening Mallampati: Mallampati I Teeth: Normal Lung: Normal Heart: Normal ASA Physical Status ASA physical status: 2 Emergency: None Planned Anesthetic Neuraxial: Spinal Planned Pain Management Sub-arachniod narcotics Pre-operative Attestations Prior to commencing anesthesia and surgery, the patient was re-evaluated, there was verification of: *The patient's identity *The results of appropriate recent lab work and preoperative vital signs *The above evaluation not changing prior to induction *Anesthetic plan, risk benefits, alternative and complications discussed with patient/family; questions answered; patient/family understands, accepts and wishes to proceed. MIGUELINA BURNS MD September 29, 2018 08:38
[2018-09-29] MEDS ORDERED: METOCLOPRAMIDE 10 MG INJ ONE (09:08)
[2018-09-29] MEDS ORDERED: KETOROLAC 30 MG INJ ONE (09:08)
[2018-09-29] MEDS ORDERED: morphine SULFATE/PF (10 MG/10 ML) INJ ONE (09:08)
[2018-09-29] MEDS ORDERED: ONDANSETRON 4 MG INJ ONE (09:08)
[2018-09-29] MEDS ORDERED: CEFAZOLIN 1 GM INJ ONE (09:15)
[2018-09-29] MEDS ORDERED: TRIAMCINOLONE ACET 40 MG/ML INJ INJ STA (09:19)
[2018-09-29] MEDS ORDERED: FENTAnyl 50 MCG/ML VIAL ONE (09:54)
[2018-09-29] MEDS ORDERED: OXYTOCIN 30 UNITS/LR 500 ML IV ONE (10:24)
[2018-09-29] MEDS ORDERED: EPHEDrine 25 MG/5 ML SYG ONE (10:25)
[2018-09-29] MEDS ORDERED: LIDOCAINE 2% (SDV) 5 ML INJ ONE (10:41)
--- NOTE | 2018-09-29 11:09 | OPPN ---
Date/Time of Note Date/Time of Note DATE: 09/29/18 TIME: 11:05 Operative Report Planned Procedure Procedure date September 29, 2018 Procedure(s) Rc/s and excision of periumbilical keloid Performed by see signature line Fuel Verification Technician: OLGA ACUNA M.D. 2nd Fuel Verification Technician none Anesthesiologist: MIGUELINA BURNS MD Pre-procedure diagnosis IUP 38w6d with previous c/s in labor [id number] Anesthesia Type: [id number] spinal Post-Procedure Post-procedure diagnosis same as above delivered normal female Findings Live Baby [f], Apgars [8] and [9], weight [[id number]], position [rot], [vx] presentation loose nuchal cord]cord. Estimated Blood Loss: 400 - 500 mls Specimen(s) none Grafts/Implant(s) none Complication(s) none DE CARRANZA MD September 29, 2018 11:09
[2018-09-29] MEDS: OXYTOCIN 30 UNITS/LR 500 ML IV SCH ×2 (11:26→14:20)
[2018-09-29] MEDS ORDERED: NALOXONE (0.4 MG/ML) INJ IV PRN (11:30)
[2018-09-29] MEDS ORDERED: KETOROLAC 30 MG INJ IV PRN ×2 (11:30)
[2018-09-29] MEDS ORDERED: morphine 2 MG INJ IV PRN ×6 (11:30)
[2018-09-29] MEDS ORDERED: DIPHENHYDRAMINE 50 MG INJ IV PRN ×3 (11:30→15:00)
[2018-09-29] MEDS ORDERED: ONDANSETRON 4 MG INJ IV PRN ×3 (11:30→15:00)
[2018-09-29 14:20] VITALS: BP 115/63; PULSE 64; RESP 18
[2018-09-29] MEDS ORDERED: ZOLPIDEM 5 MG TAB PO PRN (15:00)
[2018-09-29] MEDS ORDERED: LANOLIN HPA 1 PKT TOP PRN (15:00)
[2018-09-29 16:40] VITALS: BP 116/69; PULSE 72; RESP 20
--- NOTE | 2018-09-29 19:08 | HP ---
Date/Time of Note Date/Time of Note DATE: 09/29/18 TIME: 19:01 OB - History Hx of Present Free Text/Dictation 42 y.o who had c/s 20yrs ago who got assisted by IVF was scheduled on 09/30/18 came in labor with intact membrane. CAT I tracing prepare for Rc/s after proper consent is obtained Chief Complaint: uc's Estimated Due Date: October 07, 2018 : 2 Para: 1 Spontaneous : 0 Therapeutic : 1 Care: Good Care Ultrasounds: Normal mid trimester US Obstetrical Complications: None Medical Complications: None Past Family/Social History * Past Medical, Surgical, Family and Obstetric Histories reviewed from chart. Rubella: immune RPR/VDRL: Negative GBS Status: Negative HBsAG: Negative OB Admission Exam Vital Signs Vital Signs Vital Signs Date Temp Pulse Resp B/P (MAP) Pulse Ox O2 O2 Flow FiO2 Time Delivery Rate 09/29/18 98.5 72 20 116/69 97 Room Air 16:40 (85) Physical Exam HEENT: WNL Heart: Rhythm Normal Lungs: Clear, Equal Abdomen: WNL Extremities: Normal Reflexes: Normal Cervical Dilatation: Fingertip Effacement: 50% Station: -2 Membranes: Intact Amniotic Fluid: Unevaluable Heart Rate: 140's Accelerations: Accelerations Present Decelerations: No Decelerations Varibility: Moderate Contractions on Admission: >10 Minutes Apart Intensity: Moderate Last 72 hours Lab Results CBC & BMP 09/29/18 06:55 OB Assessment/Plan Reason for admission: section Other Assessment: IUP 38w6d with previous c/s in early labor Plan: Section, Other (excision of periumbilical keloid) DE CARRANZA MD September 29, 2018 19:08
--- NOTE | 2018-09-29 19:18 | OPR ---
DATE OF OPERATION: 09/29/2018 PREOPERATIVE DIAGNOSES: 1. Intrauterine at 38 weeks and 6 days. 2. Previous section, in labor. 3. Keloid on periumbilical region. POSTOPERATIVE DIAGNOSES: 1. Intrauterine at 38 weeks and 6 days. 2. Previous section, in labor. 3. Keloid on periumbilical region. 4. Delivered normal female . OPERATION PERFORMED: Repeat low transverse section, excision of keloid on periumbilical reg ion. ANESTHESIA: Spinal. ANESTHESIOLOGIST: Yvonne Fitch MD SURGEON: Karli Flores MD HOME DECORATOR: Miguel Aguilar MD ESTIMATED BLOOD LOSS: Approximately 500 mL. PROCEDURE IN DETAILS: Under proper induction of spinal anesthesia, the patient was placed in the fro g position. Maloney catheter was introduced into the bladder under sterile condition and repositioned to supine. Abdominal wall was prepped and draped in usual aseptic manner. A transverse incision was made along the previous incisional scar. Scar tissue was excised. The incision was carried down th rough the subcutaneous tissue to the anterior recti fascia which was incised transversely in length o f the incision. Fascial flap was created by blunt and sharp dissection of tendinous attachment. Per itoneal cavity was entered. Low portion of the uterus was exposed and above the uterovesical reflect ion, a transverse incision was made. This incision was extended bilaterally layer by layer until antonio ched the amniotic membrane, ruptured, revealed clear amniotic fluid and normal female infant was born from the right occiput transverse position with a vacuum Kiwi for 5 seconds because baby was floated and delivered. There was a loose nuchal cord which was released. Delayed cord clamping done and co rd was cut and handed to the respiratory care personnel for further care. Cord blood was obtained. The placenta was removed manually. Uterus was exteriorized. Uterine cavity was completely explored and uterine incision was closed using #1 chromic catgut on the first layer in occasional interlocking manner and second layer using 0 chromic with a thin needle including serosa and no bleeder was noted . The procedure was completed. The abdominal cavity was irrigated with water. All the sponge count was correct. The uterus was relocated in abdominal cavity. Incisional site was checked which was i ntact. A piece of Surgicel was laid on it. Sponge count was correct and parietal peritoneum was deuce sed using 0 chromic catgut in continuous manner, muscle closed with 0 chromic catgut in continuous ma nner. Fascia was closed with a #1 Vicryl in continuous manner in 2 segments. While we were closing it, piece of Surgicel was introduced under the fascia. Subcutaneous tissue was irrigated with water. This layer was approximated with 2-0 plain in continuous manner after the adequate hemostasis was s ecured. The skin was closed with 3-0 Monocryl in subcuticular manner. Steri-Strip was applied. A p ressure dressing was applied. I tried the new tape which she was lifting up and was staining and so I decided to the traditional dressing was applied. Estimated blood loss was 500 mL. Urine output wa s 200 mL. The patient withstood procedure and was sent to the recovery room in stable condition. Dictated By: KARLI RAZO/THONG Conf#: [id number] DID#: [id number]
[2018-09-29 19:35] VITALS: BP 114/58; PULSE 76; RESP 18
--- NOTE | 2018-09-29 19:38 | OPR ---
DATE OF OPERATION: ADDENDUM: POSTOPERATIVE DIAGNOSIS: See pathological report. PROCEDURE: Excision of keloid on the periumbilical region. ANESTHESIA: Local anesthesia. PROCEDURE IN DETAILS: Even though she had spinal anesthesia for the patient was sensitive, additional 2% lidocaine was given around the lesion and the keloid was removed by cutting the ellipt ical incision and the entire keloid is removed which is about 4 cm in length. Then, the defect was c losed in 2 layers. First layer was closed with the #1 Vicryl in continuous manner. The fascia was r einforced with #1 Vicryl. The skin was closed with a 3-0 Monocryl. Initially, I was going to close with a subcuticular manner but the patient was continuously oozing and we decided continuous overlock ing suture on the skin closure. Pressure dressing was applied. Estimated blood loss from this proce dure was probably less than [address] Kenalog 40 was diluted in the normal saline and was injected i ntracuticular for prevention of keloid formation. Dictated By: SHAUN RAZO/THONG Conf#: [id number] DID#: [id number]
[2018-09-29] MEDS: SENNA/DOCUSATE NA (8.6MG/50MG) TAB PO SCH (20:53)
[2018-09-30] VITALS: BP 104/60; PULSE 70; RESP 18
[2018-09-30] MEDS: LACTATED RINGER'S 1,000 ML IV SCH ×4 (00:18→23:00)
[2018-09-30 04:20] VITALS: BP 106/55; PULSE 68; RESP 18
--- NOTE | 2018-09-30 07:48 | PAC ---
Date/Time of Note Date/Time of Note DATE: 09/30/18 TIME: 07:48 Post-Anesthesia Notes Post-Anesthesia Note Last documented vital signs Vital Signs Date Temp Pulse Resp B/P (MAP) Pulse Ox O2 O2 Flow FiO2 Time Delivery Rate 09/30/18 98.8 68 18 106/55 96 Room Air 04:20 (72) Activity: WNL Respiratory function: WNL Cardiovascular function: WNL Mental status: Baseline Pain reasonably controlled: Yes Hydration appropriate: Yes Nausea/Vomiting absent: No MIGUELINA BURNS MD September 30, 2018 07:48
--- NOTE | 2018-09-30 07:49 | OPPN ---
Date/Time of Note Date/Time of Note DATE: 09/30/18 TIME: 07:49 Anesthesia Follow up Anesthesia Follow up Last documented vital signs Vital Signs Date Temp Pulse Resp B/P (MAP) Pulse Ox O2 O2 Flow FiO2 Time Delivery Rate 09/30/18 98.8 68 18 106/55 96 Room Air 04:20 (72) Respiratory function: WNL Cardiovascular function: WNL Comments A 42 year female s/p spinal with duramorph form post op pain POD#1 is fine. No pain, headache, N/V, itching. no neural deficit. care per surgery MIGUELINA BURNS MD September 30, 2018 07:49
[2018-09-30 08:05] VITALS: BP 104/67; PULSE 68; RESP 18
[2018-09-30] MEDS: SENNA/DOCUSATE NA (8.6MG/50MG) TAB PO SCH ×2 (10:27→21:34)
[2018-09-30] MEDS: IBUPROFEN 600 MG TAB PO SCH ×2 (12:12→18:14)
[2018-09-30] MEDS: OXYCODONE/ACETAMINOPHEN (5/325) TAB PO PRN (13:44)
[2018-09-30 16:02] VITALS: BP 107/57; PULSE 62; RESP 18
[2018-09-30 20:00] VITALS: BP 108/55; PULSE 72; RESP 18
--- NOTE | 2018-09-30 20:03 | QN ---
Documentation Comment passing flatus afebrile VSS abdomen soft wound dry calf neg for tenderness lochia min A stable PO c/s #1 P as ordered DE CARRANZA MD September 30, 2018 20:03
[2018-10-01] MEDS: IBUPROFEN 600 MG TAB PO SCH ×5 (00:02→23:44)
[2018-10-01 04:45] VITALS: BP 110/65; PULSE 76; RESP 18
[2018-10-01 08:27] VITALS: BP 107/57; PULSE 59; RESP 18
[2018-10-01] MEDS: SENNA/DOCUSATE NA (8.6MG/50MG) TAB PO SCH ×2 (08:37→21:00)
[2018-10-01] MEDS: PROMETHAZINE/CODEINE 5ML CUP PO PRN ×2 (08:38→15:38)
--- NOTE | 2018-10-01 13:51 | QN ---
Documentation Comment no b.m yet tolerating diet well VSS afebrile abdomen soft wound dry calf neg for tenderness lochia min A satisf POST c/s#2 P discharge home in am DE CARRANZA MD October 01, 2018 13:51
[2018-10-01] MEDS: OXYCODONE/ACETAMINOPHEN (5/325) TAB PO PRN ×2 (14:25→20:48)
[2018-10-01 15:32] VITALS: BP 108/66; PULSE 67; RESP 18
[2018-10-01 20:00] VITALS: BP 106/56; PULSE 69; RESP 18
[2018-10-02 04:02] VITALS: BP 100/58; PULSE 56; RESP 18
[2018-10-02] MEDS: IBUPROFEN 600 MG TAB PO SCH ×3 (05:31→18:09)
[2018-10-02] MEDS: PROMETHAZINE/CODEINE 5ML CUP PO PRN ×2 (07:14→07:27)
[2018-10-02 08:00] VITALS: BP 101/55; PULSE 61; RESP 19
[2018-10-02] MEDS: SENNA/DOCUSATE NA (8.6MG/50MG) TAB PO SCH (08:52)
[2018-10-02] MEDS ORDERED: DIPHTH/TET/ACEL PERTUSS (ADULT) 0.5 ML VIAL IM* ONE (09:00)
--- NOTE | 2018-10-02 10:42 | PD.PPDC ---
FAMILY PROGRAM SPECIALIST Discharge Instruction Diagnosis [id number] Final Diagnosis: Igvlx2p s/p repeat c/s Condition Vsusq0Qf Patient Condition: Nrjbl4b Stable Diet Kumwu0Jr Diet: Jglvy9v Resume Regular Diet Activity/Restrictions Yjdim7Ib Activity: Owrtg1b May Shower Bogax8Ok Restrictions: Jokct1k No Exercising No Lifting Minimize Stair-climbing No Sexual Activity Nothing in the Vagina No [place] No Tampons, douche Wound/Drain Care Instructions Dmdyu5Hl Wound/Drain Care Instructions: Unamq2x Wash with soap and water Keep clean and dry Follow-up Follow-up with Physician: 2, Week/Weeks Return to clinic for Rbkbz7Rw MILITARY ADMINISTRATIVE TECHNICIAN Instructions: Gofzg8m Fever greater than 101 Chills Worsening abdominal pain Excessive Vaginal Bleeding More than 2 pads per hour Unable to tolerate diet Kxcba1Mj OB Instructions: Pydsu1j Breast Tenderness Blurried Vision Headache Mlisw0Ud Surgical Instructions: Cgblk7n Incisional Drainage Incisional Redness DE CARRANZA MD October 02, 2018 10:42
--- NOTE | 2018-10-02 10:44 | DS ---
Date/Time of Note Date/Time of Note DATE: 10/02/18 TIME: 10:43 Obstetrical Discharge Record Final Diagnosis Final Diagnosis: Term delivered Section Section: Repeat Complications Augmentation: No Induction: No Rupture of Membranes: No Condition on Discharge Physical Assessment Last Vitals: vss afebrile Voiding: Yes Bowel Movement: Yes Breast: Soft, non-tender Fundus: Firm Abdomen and Incision: soft wound dry Calf Tenderness: No Patient Condition: Stable DE CARRANZA MD October 02, 2018 10:44
[2018-10-02] MEDS: OXYCODONE/ACETAMINOPHEN (5/325) TAB PO PRN ×2 (11:08→20:40)
[2018-10-02 16:00] VITALS: BP 101/52; PULSE 58; RESP 18
--- NOTE | 2018-10-03 21:43 | DELSUM ---
Delivery Summary A-C Datetime Report Generated by CPN: 10/03/2018 21:43 DELIVERY PERSONNEL Air Intercept Controller Supervisor: JAYLAN, ZARINA MATERNAL INFORMATION Delivery Anesthesia: Spinal Medications in Delivery: SEE ANESTHESIA RECORDS Delivery QBL (ml): 600 Placenta Cultured: No Maternal Complications: Other Other Maternal Complications: IVF LABOR SUMMARY EDC: 10/07/2018 00:00 No. Babies in Womb: 1 Attempted: No Labor Anesthesia: Intrathecal LABOR INFORMATION Reason for Induction: Not Applicable Oxytocin: N/A Group B Beta Strep: Negative Antibiotics # of Doses: 1 Antibiotics Time of Last Dose: 09/29/2018 09:14 Steroids Given: None Reason Steroids Not Administered: Not Applicable MEMBRANES Membranes Rupture Method: Artificial Rupture of Membranes: 09/29/2018 09:46 Length of Rupture (hr): 0.02 Amniotic Fluid Color: Clear Amniotic Fluid Amount: Moderate Amniotic Fluid Odor: Normal STAGES OF LABOR Stage 3 hr: 0 Stage 3 min: 1 CSECTION DELIVERY Primary Indication: Repeat Elective Secondary Indication: N/A CSection Urgency: Elective CSection Incidence: Repeat Labor: Labor Elective: Nonelective CSection Incision: Lower Uterine Transverse BABY A INFORMATION Infant Delivery Date/Time: 09/29/2018 09:47 Method of Delivery: Born in Route : No : N/A Forceps: N/A Vacuum Extraction: Successful Shoulder Dystocia : No ASSISTED DELIVERY BABY A Indication for Assisted Delivery: c/s Catheter Prior to Procedure: Yes Position Vacuum/Forcep Apply: Left Occipital Anterior Vacuum Number of Pulls: 1 Vacuum Number of PopOffs: 0 Vacuum Maximum Pressure Obtained: 20 Reduce Pressure btwn Ctx: No Vacuum Shovel Oiler: ANAHI Total Time Vacuum Applied: 4 Type of Forceps: n/a SHOULDER DYSTOCIA BABY A Delivery Date/Time: 09/29/2018 09:47 PRESENTATION/POSITION BABY A Presentation: Cephalic Cephalic Presentation: Vertex Vertex Position: Left Occipital Anterior Breech Presentation: N/A PLACENTA INFORMATION BABY A Placenta Delivery Time : 09/29/2018 09:48 Placenta Method of Delivery: Manual Removal Placenta Status: Delivered SCORES BABY A Heart Rate 1 min: >100 bpm Resp Effort 1 min: Good Cry Reflex Irritability 1 min: Cough/Sneeze/Pulls Away Muscle Tone 1 min: Active Motion Color 1 min: Blue/Pale Resuscitation Effort 1 min: Tactile Stimulation SCORE 1 MIN: 8 Heart Rate 5 min: >100 bpm Resp Effort 5 min: Good Cry Reflex Irritability 5 min: Cough/Sneeze/Pulls Away Muscle Tone 5 min: Active Motion Color 5 min: Body [place], Extremit Blue Resuscitation Effort 5 min: Tactile Stimulation SCORE 5 MIN: 9 INFANT INFORMATION BABY A Gestational Age at Delivery: 38.6 Gestational Status: Early Term- 37- 38.6 Weeks Infant Outcome : Liveborn Infant Condition : Stable Sex: Female IDENTIFICATION/MEDS BABY A ID Band Number: [id number] ID Band Location: Right Leg; Left Arm Sensor Applied: Yes Sensor Number: [id number] Sensor Location : Cord Clamp Vitamin K Given : Not Given Erythromycin Given: Not Given WEIGHT/LENGTH BABY A Infant Birthweight (gm): 3115 Infant Weight (lb): 6 Weight (oz): 14 Infant Length (in): 19.00 Length (cm): 48.26 CORD INFORMATION BABY A No. Cord Vessels: 3 Nuchal Cord : Around Neck x1, Loose Cord Blood Taken: Yes Infant Suction: Mouth; Nose ASSESSMENT BABY A Complications: None Physical Findings at Delivery: Within Normal Limits Infant Respirations: Grunting Dictating Transcribing Machine Servicer/ALS Called : No
== END 2018-10-02 21:40 | disposition home or self-care (01) | DRG 788 ==
LOC: OBT 06:05 → L-D 06:05 → OBT 06:35 → L-D 06:35 → PP1 14:29
PROVIDERS: ADMIT Obstetrics & Gynecology; ATTEND Obstetrics & Gynecology
PROC: 0HB7XZZ Excision of Abdomen Skin, External Approach (ICD-10-PCS; 2018-09-29)
PROC: 10D00Z1 Extraction of Products of Conception, Low, Open Approach (ICD-10-PCS; principal; 2018-09-29 09:00)
DX: O34.211 Maternal care for low transverse scar from previous cesarean delivery (principal); L91.0 Hypertrophic scar; Z3A.38 38 weeks gestation of pregnancy; Z37.0 Single live birth
CPT/HCPCS: 71046; 81001; 85025; 85610; 85730; 86592; 86850; 86900; 86901; 87086; 87340; 99464; G0463; J0690; J1885; J2270; J2274; J2405; J2590; J2765; J3010; J7120

== ENCOUNTER → 2018-11-20 | Emergency (ER) | payer OTHER ==
[~2018-11-20] VITALS: Ht 172.7 cm; Wt 78.8 kg
[~2018-11-20] MED LIST changes: +BUTA1CAP38 PO; +KETOROLAC 30 MG INJ IV STA; +ONDANSETRON 4 MG INJ IV STA; +SOD CHLORIDE 0.9% 1,000 ML IV STA; +TETRACAINE 0.5% 4 ML OPH BOTH EYES ONE
[2018-11-20 11:17] VITALS: Ht 172.7 cm; Wt 78.8 kg
[2018-11-20 14:47] VITALS: BP 146/63; PULSE 57; RESP 18
--- NOTE | 2018-11-20 15:22 | ERD ---
ER Documentation Chief Complaint Chief Complaint vag bleed x 6 weeks , headache x 3 weeks HPI 42-year-old female presenting with headache and vaginal bleeding. Patient had a on September 29 and has had intermittent headaches for the last 3 weeks. She states it comes and goes and is resolved with naproxen. She has not been pa ssing any vaginal bleeding with clots and goes through one pad a day. She has generalized back pain. Denies any dysuria. Denies medical problems. NKDA. Surgical history . Social history denies. No complications in her ROS All systems reviewed and are negative except as per history of present illness. Medications Home Meds Active Scripts Wgbdsdldbx-Ozujzbimvfpik-Uooeewuf* (Fioricet*) 50-300-40 Mg Capsule, 1 CAP PO Q4 H PRN for HEADACHE, #30 CAP Prov:ERENDIRA HENLEY PA-C 11/20/18 Reported Medications Folic Acid* (Folic Acid*) 0.4 Mg Tablet, 0.4 MG PO DAILY, TAB 08/28/18 Vit #76/Iron,Carb/FA (Prenatabs Rx Tablet) 1 Each Tablet, 1 EACH PO DAILY, TAB 08/28/18 Ferrous Sulfate (Iron) 134 Mg Tablet, 134 MG PO DAILY, TAB 08/28/18 Allergies Allergies: Coded Allergies: No Known Drug Allergies (Verified Allergy, Mild, 08/28/18) PMhx/Soc History of Surgery: Yes (CHOLECYSTECTOMY, breast aug, buttock implants) Anesthesia Reaction: No Hx Neurological Disorder: No Hx Respiratory Disorders: No Hx Cardiac Disorders: No Hx Psychiatric Problems: Yes (anxiety, depression ) Hx Miscellaneous Medical Probl: Yes (htn) Hx Alcohol Use: Yes (OCC) Hx Substance Use: No Hx Tobacco Use: No Smoking Status: Never smoker FmHx Family History: No diabetes, No coronary disease, No other Physical Exam Vitals Vital Signs Date Temp Pulse Resp B/P (MAP) Pulse Ox O2 O2 Flow FiO2 Time Delivery Rate 11/20/18 98.1 57 18 146/63 98 Room Air 14:47 (90) 11/20/18 98.1 68 18 134/64 99 11:17 (87) Physical Exam GENERAL: The patient is well-appearing, well-nourished, in no acute distress HEENT: Atraumatic. Conjunctivae are pink. Pupils equal, round, and reactive to light. There is no scleral icterus. Tympanic membranes clear bilaterally. Oropharynx clear. NECK: C-spine is soft and supple. There is no meningismus. There is no cervical lymphadenopathy. CHEST: Clear to auscultation bilaterally. There are no rales, wheezes or rhonchi. HEART: Regular rate and rhythm. No murmurs, clicks, rubs or gallops. ABDOMEN:Soft, nontender and nondistended. Good bowel sounds. No rebound or guarding. No gross peritonitis. No gross organomegaly or masses. BACK: No midline or flank tenderness. NEUROLOGIC: Alert and oriented. Cranial nerves II through XII intact. Motor strength in all 4 extremities with 5 out of 5 strength. Sensation grossly intact. Normal speech and gait. Babinski negative. DTR 2+ throughout. Result Diagram: 11/20/18 1238 11/20/18 1238 Results 24 hrs Laboratory Tests Test 11/20/18 12:38 White Blood Count 8.7 10^3/ul Red Blood Count 4.69 10^6/ul Hemoglobin 13.0 g/dl Hematocrit 39.9 % Mean Corpuscular Volume 85.1 fl Mean Corpuscular Hemoglobin 27.7 pg Mean Corpuscular Hemoglobin Concent 32.6 g/dl Red Cell Distribution Width 15.4 % Platelet Count 295 10^3/UL Mean Platelet Volume 10.0 fl Immature Granulocytes % 0.500 % Neutrophils % 65.0 % Lymphocytes % 26.8 % Monocytes % 5.1 % Eosinophils % 2.0 % Basophils % 0.6 % Nucleated Red Blood Cells % 0.0 /100WBC Immature Granulocytes # 0.040 10^3/ul Neutrophils # 5.6 10^3/ul Lymphocytes # 2.3 10^3/ul Monocytes # 0.4 10^3/ul Eosinophils # 0.2 10^3/ul Basophils # 0.1 10^3/ul Nucleated Red Blood Cells # 0.0 10^3/ul Urine Color STRAW Urine Clarity CLEAR Urine pH 7.0 Urine Specific [place] 1.003 Urine Ketones NEGATIVE mg/dL Urine Nitrite NEGATIVE mg/dL Urine Bilirubin NEGATIVE mg/dL Urine Urobilinogen NEGATIVE mg/dL Urine Leukocyte Esterase NEGATIVE Gabby/ul Urine Microscopic RBC 1 /HPF Urine Microscopic WBC 0 /HPF Urine Squamous Epithelial Cells FEW /HPF Urine Hemoglobin 1+ mg/dL Urine Glucose NEGATIVE mg/dL Urine Total Protein NEGATIVE mg/dl Urine Test NEGATIVE Sodium Level 143 mmol/L Potassium Level 4.2 mmol/L Chloride Level 105 mmol/L Carbon Dioxide Level 28 mmol/L Anion Gap 10 Blood Urea Nitrogen 15 mg/dl Creatinine 0.61 mg/dl Est Glomerular Filtrat Rate mL/min > 60 mL/min Glucose Level 102 mg/dl Calcium Level 10.0 mg/dl Total Bilirubin 0.4 mg/dl Direct Bilirubin 0.00 mg/dl Indirect Bilirubin 0.4 mg/dl Aspartate Amino Transf (AST/SGOT) 31 IU/L Alanine Aminotransferase (ALT/SGPT) 30 IU/L Alkaline Phosphatase 82 IU/L Total Protein 8.2 g/dl Albumin 4.5 g/dl Globulin 3.70 g/dl Albumin/Globulin Ratio 1.21 Lipase 155 U/L Current Medications Medications Dose Sig/Bunny Start Time Status Last (Trade) Ordered Route PRN Stop Time Admin Dose Reason Admin Sodium 1,000 ml @ Q1H STAT 11/20/18 DC 11/20/18 Chloride 1,000 mls/hr IV 12:35 11/20/18 13:19 13:34 Ondansetron 4 mg ONCE STAT 11/20/18 DC 11/20/18 HCl (Zofran IV 12:35 11/20/18 13:19 Inj) 12:36 Ketorolac 30 mg ONCE STAT 11/20/18 DC 11/20/18 Tromethamine IV 12:35 11/20/18 13:20 (Toradol) 12:36 Tetracaine 1 drop ONCE ONCE 11/20/18 DC HCl BOTH EYES 14:00 11/20/18 (Tetracaine 14:01 0.5% Steri-Unit Claudia) Procedures/MDM DIAGNOSTIC IMAGING REPORT Patient: CHIQUIS ACHARYA : 1975 Age: 42 Sex: F MR #: [id number] DOS: 11/20/18 1235 Ordering MD: CASANDRA HENLEY PA-C Location: [facility] Room/Bed: AMENDMENT: 11/20/2018 1:28:38 PM Bob Serna M.d There is a trace amount of free fluid in the cul-de-sac. PROCEDURE: US Pelvis. CLINICAL INDICATION: pelvic pain TECHNIQUE: Multiple sonographic images of the pelvis were obtained utilizing transabdominal technique. The images were reviewed on a PACS workstation. COMPARISON: US PELVIS 09/18/2018 FINDINGS: The uterus is normal in size with a normal appearance of the myometrium. The uterus measures 8.4 x 4.3 x 5.4 cm. The endometrial stripe is homogeneous in appearance and has the thickness of 4 mm. The right ovary was not visualized. The left ovary measures 2.6 x 1.7 x 2.4 cm. There is a 2.3 cm simple cyst. There is Doppler flow. No free fluid is present within the pelvis. RPTAT: AA IMPRESSION: Small simple cyst in the left ovary. Right ovary not visualized. ER course: 1 L normal saline given in ED. Toradol given in ED. Upon reevaluation patient stated her symptoms had dramatically improved. Ocular pressures below 20 mmHg bilaterally. MDM: 42-year-old male presenting with headache. Patient's ultrasound is within normal limits and blood work and urine is within normal limits. His headache improved with fluids in the ER. I discussed the need for CT scan on the patient today. Patient was hesitant due to radiation and I feel that patient symptoms improved with the fluids I do not feel is indicated at this time. Patient will be returning in 2 days for evaluation and possible CT scan at that time. I have considered preeclampsia however patient's blood work is within normal limits and there are no protein noted in the urine. Patient is likely having stress headache versus hormonal changes. She is discharged with supportive medications and will return for reevaluation in 2 days. Patient is told symptoms change or worsen to return sooner. I have low suspicion for neuro deficit and I have low suspicion for intracranial hemorrhage. I have low suspicion for sepsis or meningitis. All questions answered at discharge Departure Diagnosis: Primary Impression: Headache Condition: Stable Patient Instructions: Self-Care for Headaches Referrals: COMMUNITY CLINICS YOU HAVE RECEIVED A MEDICAL SCREENING EXAM AND THE RESULTS INDICATE THAT YOU DO NOT HAVE A CONDITION THAT REQUIRES URGENT TREATMENT IN THE EMERGENCY DEPARTMENT. FURTHER EVALUATION AND TREATMENT OF YOUR CONDITION CAN WAIT UNTIL YOU ARE SEEN IN YOUR DOCTORS OFFICE WITHIN THE NEXT 1-2 DAYS. IT IS YOUR RESPONSIBILITY TO MAKE AN APPOINTMENT FOR FOLOW-UP CARE. IF YOU HAVE A PRIMARY DOCTOR --you should call your primary doctor and schedule an appointment IF YOU DO NOT HAVE A PRIMARY DOCTOR YOU CAN CALL OUR PHYSICIAN REFERRAL HOTLINE AT IF YOU CAN NOT AFFORD TO SEE A PHYSICIAN YOU CAN CHOSE FROM THE FOLLOWING [facility] [address] [facility] [address] [facility] [address] [facility] [address] [facility]. [facility] [address] [facility]. [facility]. [address] Additional Instructions: FOLLOW UP WITH YOUR PRIMARY CARE PHYSICIAN TOMORROW.Return to this facility if you are not improving as expected. ERENDIRA HENLEY PA-C Nov 20, 2018 15:22
== END | disposition home or self-care (01) ==
LOC: FTE 11:06
DX: R51 Headache (principal); R10.2 Pelvic and perineal pain
CPT/HCPCS: 36415; 76856; 80053; 81001; 83690; 84703; 85025; 96361; 96374; 96375; J1885; J2405; J7030; Z7502; Z7610

== ENCOUNTER 2018-12-09 04:24 | Emergency (ER) | payer OTHER ==
[~2018-12-09] VITALS: Ht 172.7 cm; Wt 78.2 kg
[~2018-12-09 04:24] MED LIST changes: -KETOROLAC 30 MG INJ IV STA; +NAPR-985 PO; -ONDANSETRON 4 MG INJ IV STA; -SOD CHLORIDE 0.9% 1,000 ML IV STA; -TETRACAINE 0.5% 4 ML OPH BOTH EYES ONE
[2018-12-09 04:26] VITALS: Ht 172.7 cm; Wt 78.2 kg
[2018-12-09] MEDS ORDERED: ONDANSETRON (ODT) 4 MG TAB ODT STA (04:37)
[2018-12-09] MEDS ORDERED: KETOROLAC 30 MG INJ IM STA (04:37)
--- NOTE | 2018-12-09 04:43 | ERD ---
ER Documentation Chief Complaint Chief Complaint HEADACHES X 2 WEEKS HPI This patient is a 42-year-old female with no significant past medical history presenting to the emergency department complaining of intermittent headache for the past 2 months. She states the headache has become constant over the past 2 weeks. Pain is rated 9/10 in severity currently. Alleviated with Excedrin at home. Pain is localized to the left side of the head. She denies any neck pain, fevers, chills, abdominal pain, dizziness, syncope, or other symptoms at this time. ROS All systems reviewed and are negative except as per history of present illness. Medications Home Meds Active Scripts Naproxen* (Naprosyn*) 500 Mg Tablet, 500 MG PO BID PRN for PAIN AND/OR INFLAMMATION, #30 TAB Prov:AJ RODGERS PA-C 12/09/18 Kbuixlnymw-Yxssabwehropj-Enzcsueb* (Fioricet*) 50-300-40 Mg Capsule, 1 CAP PO Q4H PRN for HEADACHE, #30 CAP Prov:ERENDIRA HENLEY PA-C 11/20/18 Reported Medications Folic Acid* (Folic Acid*) 0.4 Mg Tablet, 0.4 MG PO DAILY, TAB 08/28/18 Vit #76/Iron,Carb/FA (Prenatabs Rx Tablet) 1 Each Tablet, 1 EACH PO DAILY, TAB 08/28/18 Ferrous Sulfate (Iron) 134 Mg Tablet, 134 MG PO DAILY, TAB 08/28/18 Allergies Allergies: Coded Allergies: No Known Drug Allergies (Verified Allergy, Mild, 08/28/18) PMhx/Soc History of Surgery: Yes (CHOLECYSTECTOMY, breast aug, buttock implants) Anesthesia Reaction: No Hx Neurological Disorder: No Hx Respiratory Disorders: No Hx Cardiac Disorders: No Hx Psychiatric Problems: Yes (anxiety, depression ) Hx Miscellaneous Medical Probl: Yes (htn) Hx Alcohol Use: Yes (OCC) Hx Substance Use: No Hx Tobacco Use: No FmHx Family History: No diabetes Physical Exam Vitals Vital Signs Date Temp Pulse Resp B/P (MAP) Pulse Ox O2 O2 Flow FiO2 Time Delivery Rate 12/09/18 98.1 59 16 129/58 99 04:26 (81) Physical Exam Const: No acute distress Head: Atraumatic Eyes: Normal Conjunctiva ENT: Normal External Ears, Nose and Mouth. Neck: Full range of motion. No meningismus. Resp: Clear to auscultation bilaterally Cardio: Regular rate and rhythm, no murmurs Skin: No petechiae or rashes Ext: No cyanosis, or edema Neur: Awake and alert. No neurological deficits noted. Psych: Normal Mood and Affect Results 24 hrs Laboratory Tests Test 12/09/18 04:56 POC Beta HCG, Qualitative NEGATIVE Current Medications Medications Dose Sig/Bunny Start Time Status Last (Trade) Ordered Route PRN Stop Time Admin Dose Reason Admin Ondansetron 4 mg ONCE STAT 12/09/18 DC 12/09/18 HCl (Zofran ODT 04:37 05:07 Odt) 12/09/18 04:39 Ketorolac 30 mg ONCE STAT 12/09/18 DC Tromethamine IM 04:37 (Toradol) 12/09/18 04:39 50 mg ONCE ONCE 12/09/18 DC 12/09/18 Diphenhydrami PO 05:00 04:52 ne HCl 12/09/18 05:01 (Benadryl) [place] [id number] Radiology Main Line: [phone] DIAGNOSTIC IMAGING REPORT Patient: CHIQUIS ACHARYA : 1975 Age: 42 Sex: F MR #: [id number] DOS: 12/09/18 0000 Ordering MD: AJ RODGERS PA-C Location: [facility] Room/Bed: PROCEDURE: CT Brain without contrast. CLINICAL INDICATION: For 2 weeks TECHNIQUE: A CT of the brain was performed on a Qio CT scanner utilizing axial imaging from the skull base through the vertex without IV contrast. Multiplanar reformatted images were made. Images were reviewed on a PACS workstation. The CTDIvol is 38.83 mGy and the DLP is 778.78 mGycm. DICOM images are available. One of the following 3 dose reduction techniques were used during this CT examination: 1) Automated exposure control 2) Adjustment of the mA +/- kV according to patient size or 3) Use of iterative reconstruction technique COMPARISON: Brain CT 10/14/2017 FINDINGS: There is no intracranial hemorrhage, mass effect, or midline shift. No extra- axial fluid collection is seen. The ventricles and sulci are normal in size and configuration. The density of the brain is normal, and the whitt white matter differentiation appears well-preserved. Minimal 3 mm cerebellar tonsillar ectopia is present without evidence for picking of the tonsils. This is within limits of normal range in accordance with the literature. The visualized scalp and calvarium are normal. The bilateral orbits are normal. The paranasal sinuses demonstrate chronic right maxillary sinus disease. The remaining paranasal sinuses and bilateral mastoid air cells and middle ear cavities are clear. IMPRESSION: 1. No evidence of acute intracranial hemorrhage, infarcts, or acute in tracranial pathology. 2. Minimal 3 mm cerebellar tonsillar ectopia within range of normal limits. 3. Chronic right maxillary sinus disease RPTAT: HDC .Shelia Harding MD, MD Date Time Electronically viewed and signed by .Shelia Harding MD, MD on 12/09/2018 05:36 .C/ CC: AJ RODGERS PA-C [id number] Procedures/MDM Patient is a 42-year-old female presenting to the emergency department with complaints of headache. Differential diagnoses include meningitis, intracranial hemorrhage, subarachnoid hemorrhage, CVA, TIA, tension headache, migraine, cluster headache, and others. I doubt any life threatening etiology at this time. [CT scan of the head was unremarkable.] Patient improved in the department after treatment with Toradol, Benadryl, and Zofran. Pt is to follow- up with primary care physician and return here immediately for any new or worsening symptoms. Patient's neurologic symptoms have stabilized while they have been evaluated in the department and are appropriate for outpatient work up. No e/o meningitis, intracranial bleed, seizure, stroke. Departure Diagnosis: Primary Impression: Headache Headache type: unspecified Headache chronicity pattern: acute headache Intractability: not intractable Qualified Codes: R51 - Headache Condition: Fair Patient Instructions: Self-Care for Headaches Additional Instructions: Follow up with your PCP within the next 1-3 days for a repeat evaluation. If you require a referral to a specialist, your Primary Care Provider may be able to provide this for you. In most patient cases, a referral is not required. If you have further questions regarding this matter, please ask your Primary Care Provider. Return the the emergency department immediately if symptoms worsen or change. If you have any questions regarding medications, ask your pharmacist or us before you leave. If any adverse reactions, occur while taking your medications, discontinue the treatment and return to the emergency department immediately. If any new or worsening symptoms, uncontrolled fevers, or other unexplained symptoms occur, return to the emergency department immediately. Take your medications as directed, and complete the entire course of treatment. AJ RODGERS PA-C Dec 09, 2018 04:43
[2018-12-09] MEDS ORDERED: DIPHENHYDRAMINE 50 MG CAP PO ONE (05:00)
== END 2018-12-09 06:13 | disposition home or self-care (01) ==
LOC: FTE 04:24
DX: R51 Headache (principal); I10 Essential (primary) hypertension
CPT/HCPCS: 70450; 81025; Z7502; Z7610; J1885